=== PATIENT | male | born 1950 | race Caucasian/White ===

== ENCOUNTER 2020-05-18 03:14 | Emergency (ER) | payer OTHER ==
[~2020-05-18] VITALS: Ht 170.2 cm; Wt 62.1 kg
[~2020-05-18 03:14] MED LIST: IBUPROFEN800 MG PO; MEDROL4 MG PO
== END 2020-05-18 04:56 | disposition home or self-care (01) ==
LOC: ER 03:14
DX: E46 Unspecified protein-calorie malnutrition (principal); R45.0 Nervousness; F43.8 Other reactions to severe stress

== ENCOUNTER 2021-08-27 04:17 | Emergency (ER) | payer OTHER ==
[~2021-08-27] VITALS: Ht 172.7 cm; Wt 67.1 kg
[2021-08-27] MEDS ORDERED: PRESION (04:39)
[2021-08-27] MEDS ORDERED: NAPROXEN375 MG PO (05:41)
[2021-08-27] MEDS ORDERED: MEDROLPACK PO (05:41)
== END 2021-08-27 06:04 | disposition home or self-care (01) ==
LOC: ER 04:17
DX: S69.81XA Other specified injuries of right wrist, hand and finger(s), initial encounter (principal); S80.02XA Contusion of left knee, initial encounter; S80.01XA Contusion of right knee, initial encounter; X58.XXXA Exposure to other specified factors, initial encounter; Y93.89 Activity, other specified; Y92.89 Other specified places as the place of occurrence of the external cause; Y99.8 Other external cause status